=== PATIENT | female | born 1950 | race Caucasian/White ===

== ENCOUNTER 2023-03-29 09:25 | Outpatient (OUT) | payer MEDICARE, SELFPAY ==
--- NOTE | 2023-03-29 09:46 | XR_ITS ---
The [address] [address] Patient Name: AARON CHONG MRN: [id number] date: 1950 Sex: F Assigned Patient Location: [facility] Current Patient Location: [facility] Accession/Order Number: [id number] Exam Date: 03/29/2023 09:58 Report Date: 03/29/2023 11:17 At the request of: NON-STAFF PHYSICIAN Procedure: XR abdomen 1V EXAMINATION: XR abdomen 1V HISTORY: Kidney Stone COMPARISON: XR KUB 11/17/2021 FINDINGS: KIDNEY/URETER - RIGHT: 6 mm opacity projecting over inferior pole; stone versus bowel content. KIDNEY/URETER - LEFT: No visible renal or ureteral calcifications. PELVIS: No visible ureteral stones. BOWEL: No abnormal dilation or deviation. BONES: Degenerative changes of lumbar spine. [Replacement. OTHER: Negative. No abnormal gaseous collections. XR/XR abdomen 1V IMPRESSION: 1. Suspect 6 mm stone within inferior pole of right kidney. 2. Evaluation is limited by dense overlying bowel content. Electronically authenticated by: CARMEN HERBERT Date: 03/29/2023 11:17
== END 2023-03-29 09:26 | disposition home or self-care (01) ==
LOC: RAD 09:29
DX: N20.0 Calculus of kidney (principal)
CPT/HCPCS: 74018

== ENCOUNTER 2023-12-12 09:27 | Outpatient (OUT) | payer MEDICARE, SELFPAY ==
--- NOTE | 2023-12-12 09:41 | US_ITS ---
The [address] [address] Patient Name: AARON CHONG MRN: [id number] date: 1950 Sex: F Assigned Patient Location: [place] Current Patient Location: [place] Accession/Order Number: [id number] Exam Date: 12/12/2023 09:50 Report Date: 12/12/2023 11:12 At the request of: HOLLY CAZARES Procedure: US renal BI EXAMINATION: US renal BI HISTORY: kidney stone N20.0 COMPARISON: No relevant comparison available. TECHNIQUE: Ultrasound examination was performed of the bladder. FINDINGS: Right Kidney: Normal in size, contour and echotexture. The cortex measures 0.9 cm. No solid cortical mass, hydronephrosis or obstructing nephrolithiasis Height: 4.6 cm Length: 11.2 cm Width: 4.5 cm Left Kidney: Normal in size, contour and echotexture. The cortex measures 0.9 cm. No solid cortical mass, hydronephrosis or obstructing nephrolithiasis Height: 5.4 cm Length: 9.7 cm Width: 5.1 cm Urinary bladder appears normal measuring 6.7 x 6.7 x 7.4 cm a volume of 231 mL. Post void imaging was not obtained US/US renal BI IMPRESSION: No acute abnormality Electronically authenticated by: BETH COVINGTON Date: 12/12/2023 11:12
--- NOTE | 2023-12-12 09:42 | XR_ITS ---
The [address] [address] Patient Name: AARON CHONG MRN: [id number] date: 1950 Sex: F Assigned Patient Location: [place] Current Patient Location: Accession/Order Number: [id number] Exam Date: 12/12/2023 09:55 Report Date: 12/13/2023 07:41 At the request of: HOLLY CAZARES Procedure: XR abdomen 1V EXAMINATION: XR abdomen 1V HISTORY: kidney stone COMPARISON: 03/29/2023 FINDINGS: KIDNEY/URETER - RIGHT: No visible renal or ureteral calcifications. KIDNEY/URETER - LEFT: No visible renal or ureteral calcifications. PELVIS: No visible ureteral calcifications. Any visible calcifications favor phleboliths. BOWEL: No abnormal dilation or deviation. Moderate amount of stool BONES: No acute abnormality. Extensive degenerative spondylosis OTHER: Negative. No abnormal gaseous collections. XR/XR abdomen 1V IMPRESSION: No definite nephrolithiasis on the current exam Electronically authenticated by: BETH COVINGTON Date: 12/13/2023 07:41
== END 2023-12-12 09:28 | disposition home or self-care (01) ==
LOC: US 09:30
PROVIDERS: PCP Family Medicine; Visit Provider Physician Assistant
DX: N20.0 Calculus of kidney (principal)
CPT/HCPCS: 74018; 76775

== ENCOUNTER 2024-12-19 08:33 | Outpatient (OUT) | payer MEDICARE, SELFPAY ==
--- NOTE | 2024-12-19 08:50 | US_ITS ---
The [address] [address] Patient Name: AARON CHONG MRN: [id number] date: 1950 Sex: F Assigned Patient Location: [place] Current Patient Location: [place] Accession/Order Number: [id number] Exam Date: 12/19/2024 09:42 Report Date: 12/19/2024 09:45 At the request of: HOLLY WHEELER Procedure: US renal BI BILATERAL RENAL AND BLADDER ULTRASOUND CLINICAL HISTORY: Kidney Stone follow-up COMPARISON: 12/12/2023 Estimation of renal size is approximately 10.9 cm on the right and 11.4 cm on the left. A 5 mm echogenic focus is visualized at the midpole of the right kidney where a stone is not excluded. No hydronephrosis is identified. No renal mass lesions were imaged. There is no perinephric fluid. The urinary bladder is well distended with a volume of 608 mL. No contour or intraluminal abnormalities are seen. US/US renal BI IMPRESSION: NO OBSTRUCTIVE UROPATHY. POSSIBLE RIGHT NEPHROLITHIASIS. Impression dictated by: Carole Nogueira M.D.12/19/2024 9:45 AM Dictation Location: [place] [address] Electronically authenticated by: [id number] Y Date: 12/19/2024 09:45
--- NOTE | 2024-12-19 08:51 | XR_ITS ---
The [address] [address] Patient Name: AARON CHONG MRN: [id number] date: 1950 Sex: F Assigned Patient Location: [place] Current Patient Location: [place] Accession/Order Number: [id number] Exam Date: 12/19/2024 09:26 Report Date: 12/19/2024 09:28 At the request of: HOLLY WHEELER Procedure: XR abdomen 1V SINGLE VIEW ABDOMEN COMPARISON: 12/13/2023 CLINICAL DATA: Follow-up kidney stones. Supine views of the abdomen and pelvis were obtained. There is air within colon and nondistended small bowel loops. There is also colonic stool. The kidneys are partially obscured. There are no obvious radiopaque renal or ureteral stones. No soft tissue masses are seen. There is subtle dextroscoliotic curvature and degenerative changes at the spine. Patient has a left hip prosthesis. XR/XR abdomen 1V IMPRESSION: NO RADIOPAQUE STONES. Impression dictated by: Carole Nogueira M.D.12/19/2024 9:28 AM Dictation Location: [place] [address] Electronically authenticated by: [id number] Y Date: 12/19/2024 09:28
== END 2024-12-19 08:34 | disposition home or self-care (01) ==
PROVIDERS: PCP Family Medicine; Visit Provider Physician Assistant
DX: N20.0 Calculus of kidney (principal)
CPT/HCPCS: 74018; 76775